=== PATIENT | female | born 1955 | race Caucasian/White ===

== ENCOUNTER 2019-08-27 11:14 | Emergency (ER) | payer OTHER ==
[~2019-08-27] VITALS: Ht 175.3 cm; Wt 102.1 kg
[~2019-08-27 11:14] MED LIST: ASPIRIN EC81 M1 PO; AVAPRO 150 MG150 M1; GLUCOPHAGE1000 MG; HYDROCHLOROTH12.5 MG PO; VITAMIN D31000 UNI2 PO; ZOLOFT100 MG
[2019-08-27 12:10] VITALS: BP 143/62
== END 2019-08-27 12:10 | disposition home or self-care (01) ==
LOC: ER 11:14
DX: L25.8 Unspecified contact dermatitis due to other agents (principal); T46.7X5A Adverse effect of peripheral vasodilators, initial encounter; I10 Essential (primary) hypertension; E11.9 Type 2 diabetes mellitus without complications; F32.9 Major depressive disorder, single episode, unspecified; Z98.890 Other specified postprocedural states; Z88.2 Allergy status to sulfonamides; Z88.8 Allergy status to other drugs, medicaments and biological substances; Y92.89 Other specified places as the place of occurrence of the external cause